=== PATIENT | female | born 2000 | race Caucasian/White ===

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

== ENCOUNTER → 2022-01-20 | Outpatient (CLI) | payer OTHER ==
--- NOTE | 2022-01-20 14:13 | CT ---
EXAMINATION TYPE: CT pelvis w con DATE OF EXAM: 01/20/2022 COMPARISON: Ultrasound 09/11/2016 HISTORY: Ovarian cysts CT DLP: 813.8 mGycm Automated exposure control for dose reduction was used. CONTRAST: CT scan of the abdomen pelvis is performed with IV Contrast, patient injected with 100 mL of Isovue 3 00. FINDINGS- There is fluid posterior to the uterus or large cystic mass measuring 8 cm. Uterus is anteverted. Bladder distends normally. No pathologic adenopathy. Osseous structures intact. Mild prominence of th e bilateral renal pelvis included in the [id number]. No definite omental thickening within the vis ualized portions of the omentum. Portions of the pancreas, adrenal glands, liver, and spleen are homo geneous with regard to the portions included in the [id number]. IMPRESSION- 1. There is a large suspected cystic pelvic mass likely ovarian measuring 8 cm. Appears posterior to the uterus with some heterogeneous attenuation along the posterior left lateral region. This would be more adequately assessed with pelvic ultrasound. Correlate with serum tumor markers as clinically wa rranted.. 2. only portions of the kidneys are included in the [id number] but there does appear to be mild bi lateral hydronephrosis with may be secondary to the large suspected pelvic cystic mass
== END | disposition home or self-care (01) ==
LOC: RADCTMAIN 12:07
PROVIDERS: ATTEND Internal Medicine
DX: N13.30 Unspecified hydronephrosis (principal)
CPT/HCPCS: 72193; Q9967

== ENCOUNTER → 2022-01-29 | Outpatient (CLI) | payer OTHER ==
--- NOTE | 2022-01-29 19:34 | US ---
EXAMINATION TYPE: US pelvic complete DATE OF EXAM: 01/29/2022 COMPARISON: CT 01/20/2022 and prior ultrasound 2016. CLINICAL HISTORY: 21-year-old female N83.202 UNSPECIFIED OVARIAN CYST, LEFT SIDE. Left pelvic pain x 1 month, left ovarian cyst seen on recent CT TECHNIQUE: Transabdominal sonographic images of the pelvis were acquired. Date of LMP: 01/20/2022 EXAM MEASUREMENTS: Uterus: 8.4 x 3.3 x 5.0 cm Endometrial Stripe: 0.4 cm Right Ovary: 3.1 x 1.5 x 2.1 cm Left Ovary: 5.4 x 3.8 x 4.9 cm 1. Uterus: anteverted and otherwise within normal limits. 2. Endometrium: wnl 3. Right Ovary: wnl 4. Left Ovary: 4.4 x 3.0 x 4.5cm cyst with single thin internal septation. No suspicious nodularity. 5. Bilateral Adnexa: wnl 6. Posterior cul-de-sac: wnl IMPRESSION: A thinly septated cyst of the left ovary measuring 4.5 cm. Possibly measuring up to 5.[address] The cystic lesion within the right adnexa appears to have resolved. This has decreased in size fr om [address] and is new from 2016. Follow-up in 6-8 weeks to assess for continued involution.
== END | disposition home or self-care (01) ==
LOC: RADUSWWP 10:49
PROVIDERS: ATTEND Internal Medicine
DX: N83.202 Unspecified ovarian cyst, left side (principal)
CPT/HCPCS: 76856

== ENCOUNTER → 2022-03-13 | Outpatient (CLI) | payer OTHER ==
--- NOTE | 2022-03-13 08:09 | US ---
EXAMINATION TYPE: US pelvic complete DATE OF EXAM: 03/13/2022 COMPARISON: NONE CLINICAL HISTORY: LEFT OVARIAN CYST N83.202. known left ovarian cyst, lower back pain TECHNIQUE: TA. Transabdominal sonographic images of the pelvis were acquired. Date of LMP: 03/07/2022 EXAM MEASUREMENTS: Uterus: 8.7 x 5.9 x 3.3 cm Endometrial Stripe: 0.7 cm Right Ovary: 3.5 x 3.4 x 2.2 cm Left Ovary: 5.9 x 5.7 x 3.3 cm 1. Uterus: Anteverted wnl 2. Endometrium: wnl 3. Right Ovary: small follicles, wnl 4. Left Ovary: septated ovarian cyst as seen previously, measuring today at 5.1 x 5.6 x 3.0 5. Bilateral Adnexa: mild free fluid on the left 6. Posterior cul-de-sac: wnl IMPRESSION: 1. The essentially stable left ovarian septated cyst. Consider continued follow-up or direct visualiz ation. 2 small amount of free fluid. 3. Right ovarian follicular cyst.
== END | disposition home or self-care (01) ==
LOC: RADUSWWP 06:55
PROVIDERS: ATTEND Obstetrics & Gynecology Obstetrics
DX: N83.202 Unspecified ovarian cyst, left side (principal); N83.01 Follicular cyst of right ovary
CPT/HCPCS: 76856